=== PATIENT | female | born 2000 | race African-American/Black ===

== ENCOUNTER 2023-10-17 05:22 | Emergency (ER) | payer SELFPAY ==
[~2023-10-17] VITALS: Ht 165.1 cm; Wt 70.0 kg
[2023-10-17 06:11] VITALS: RESP 18; TEMP 98.1; O2SAT 100
[2023-10-17 06:20] VITALS: BP 103/65; PULSE 72
== END 2023-10-17 08:21 | disposition left against medical advice (07) ==
LOC: ER 05:22
DX: T76.21XA Adult sexual abuse, suspected, initial encounter (principal); Z53.21 Procedure and treatment not carried out due to patient leaving prior to being seen by health care provider; X58.XXXA Exposure to other specified factors, initial encounter; Y93.89 Activity, other specified; Y92.89 Other specified places as the place of occurrence of the external cause; Y99.8 Other external cause status
CPT/HCPCS: 99281